=== PATIENT | male | born 1965 ===

== ENCOUNTER 2020-12-16 06:57 | Inpatient (IN) | payer OTHER ==
[~2020-12-16] VITALS: Ht 167.6 cm; Wt 117.9 kg
[~2020-12-16 06:57] MED LIST: IBUPROFEN800 MG PO; ORPH100T PO
[2020-12-16] MEDS ORDERED: ATACAND16 MG (07:12)
[2020-12-16] MEDS ORDERED: TOPROL XL25 M1 (07:13)
[2020-12-18] MEDS ORDERED: CIPRO500 MG PO (10:42)
[2020-12-18] MEDS ORDERED: PROTONIX40 MG PO (10:42)
[2020-12-18] MEDS ORDERED: FLAGYL500MG PO (10:42)
== END 2020-12-18 13:44 | disposition home or self-care (01) | DRG 343 ==
LOC: ER 06:57 → SEC-K 09:17 → SURH 12:35
PROVIDERS: ADMIT Surgery; ATTEND Surgery
PROC: BW2110Z Computerized Tomography (CT Scan) of Abdomen and Pelvis using Low Osmolar Contrast, Unenhanced and Enhanced (ICD-10-PCS; 2020-12-16)
PROC: 0DTJ0ZZ Resection of Appendix, Open Approach (ICD-10-PCS; principal; 2020-12-16 10:00)
DX: K35.890 Other acute appendicitis without perforation or gangrene (principal); I10 Essential (primary) hypertension; D72.828 Other elevated white blood cell count; E87.6 Hypokalemia; Z20.822 Contact with and (suspected) exposure to COVID-19

== ENCOUNTER 2022-01-24 07:58 | Outpatient (CLI) | payer OTHER ==
[~2022-01-24 07:58] MED LIST changes: +ATACAND16 MG; +CIPRO500 MG PO; +FLAGYL500MG PO; +PROTONIX40 MG PO; +TOPROL XL25 M1
== END 2022-01-24 08:00 | disposition home or self-care (01) ==
LOC: TOM 07:58
PROVIDERS: ATTEND General Practice
DX: R10.11 Right upper quadrant pain (principal); R10.2 Pelvic and perineal pain

== ENCOUNTER 2024-04-20 14:52 | Outpatient (CLI) | payer OTHER | END 2024-04-20 15:00 | disposition home or self-care (01) | LOC: RAD 14:52 | PROVIDERS: ATTEND Orthopaedic Surgery Sports Medicine | DX: M17.0 Bilateral primary osteoarthritis of knee (principal) ==

== ENCOUNTER 2024-06-04 08:26 | Outpatient (CLI) | payer OTHER | END 2024-06-04 08:30 | disposition home or self-care (01) | LOC: SONOGRAMA 08:26 | PROVIDERS: ATTEND General Practice | DX: R10.11 Right upper quadrant pain (principal) ==

== ENCOUNTER 2024-12-03 22:17 | Emergency (ER) | payer OTHER ==
[~2024-12-03] VITALS: Ht 167.6 cm; Wt 115.2 kg
[2024-12-03] MEDS ORDERED: KETOROLAC TROMETHAMINE 30 MG VIAL IM STA (22:58)
[2024-12-03] MEDS ORDERED: KETOROLAC TROMETHAMINE 30 MG VIAL ONE (23:47)
== END 2024-12-04 00:01 | disposition home or self-care (01) ==
LOC: ER 22:17
DX: M25.511 Pain in right shoulder (principal); Z88.8 Allergy status to other drugs, medicaments and biological substances; M85.811 Other specified disorders of bone density and structure, right shoulder
CPT/HCPCS: 73030; 96372; 99283; J1885

== ENCOUNTER 2025-02-07 10:26 | Outpatient (CLI) | payer OTHER | END 2025-02-07 10:39 | disposition home or self-care (01) | LOC: TOM 10:26 | PROVIDERS: ATTEND General Practice | DX: R05.9 Cough, unspecified (principal); M25.551 Pain in right hip ==